=== PATIENT | female | born 1980 | race Caucasian/White ===

== ENCOUNTER 2018-04-14 10:11 | Emergency (ER) | payer OTHER ==
[~2018-04-14] VITALS: Ht 165.1 cm; Wt 97.5 kg
[~2018-04-14 10:11] MED LIST: JUNEL1 EAC1 PO; OCUFLOX 0.100 DROP/5 BOTH EYES
[2018-04-14 12:02] LABS: HEMATOCRIT 39.2 % (36.0-46.0); HEMOGLOBIN 13.3 G/DL (11.9-15.5); MCH 32.1 PG (29.0-34.0); MCHC 33.9 G/DL (30.0-36.0); MCV 94.7 FL (83-99); PLATELET COUNT 271 K/uL (156-360); RBC DIS.WIDTH-CV 12.9 % (11.8-14.6); RBC DIS.WIDTH-SD 45.6 % (39-53); RED BLOOD COUNT 4.14 M/uL (3.80-5.20); WHITE BLOOD COUNT 7.5 K/uL (4.1-10.2)
[2018-04-14 12:12] LABS: CHLORIDE 104 mEq/L (99-109); POTASSIUM 3.9 mEq/L (3.7-5.4); SODIUM 138 mEq/L (136-147)
[2018-04-14 12:28] LABS: QUANTITATIVE HCG < 4.0 MIU/ML
[2018-04-14 12:35] LABS: GLUCOSE 95 mg/dL (70-99)
[2018-04-14 12:39] LABS: CREATININE 0.8 mg/dL (0.6-1.3); GFR ESTIMATE (CALCULATED) > 59 mL/min/
[2018-04-14 12:40] LABS: UREA NITROGEN (BUN) 12 mg/dL (9-23)
[2018-04-14 12:54] VITALS: BP 126/98
== END 2018-04-14 12:56 | disposition home or self-care (01) ==
LOC: EME 10:11
PROVIDERS: Nurse Practitioner Family
DX: R20.2 Paresthesia of skin (principal); R20.0 Anesthesia of skin; Z97.5 Presence of (intrauterine) contraceptive device; F17.200 Nicotine dependence, unspecified, uncomplicated
CPT/HCPCS: 70450; 80048; 84702; 85027; 93005; 99281; 99283